=== PATIENT | female | born 1975 | race Caucasian/White ===

== ENCOUNTER → 2017-02-16 | Outpatient (CLI) | payer OTHER ==
--- NOTE | 2017-02-17 06:40 | PAP/PSG TECHNICIAN REPORT ---
[facility] Business Analytics Faculty Member Polysomnogram Report Study name: None Report date: 02/17/2017 Study date: 02/16/2017 Referring Physician: Karma Lo M.D. Name: CHAN TA Interpreting Physician: Ron Mendoza M.D. Date of : 1975 Business Analytics Faculty Member: Елена Narayan [facility]. Sex: Female Age: 42 StudyType: PSG Weight: 147.2 kgs Height: 42 years, Height 159 cm Neck Circum:42cm BMI: 58.23 Medications: Ativan 1mg, Dulera 200mcg-5mcg, Seroquel 50mg, Singulair 10mg, Ventolin HFA 90mcg/inh, Levothyroxine 88mcg, Sertraline 100mg, Spironolactone 50mg Patient History Study started on room air with ETCO2 monitoring in room #7. 41 yr old female here tonight for a possible split psg. She complains of SO and SM insomnia. She has EDS and loud snoring. Her sister has JOVITA and uses cpap. ESS=11/24. Neck circ=42cm. Parameters Monitored NPSG: E1-M2, E2-M1, Fp1-M2, Fp2-M1, F3-M2, F4-M2, F4-M1, C3-M2, C4-M2, C4-M1, O1-M2, O2-M2, O2-M1, T3-M2, T4-M1, P3-M2, P4-M1, CHIN1, CHIN2, HR, EKG, Legs, PFLOW, SNOR, FLOW, CFLOW, Tidal Volume, THOR, ABDO, SpO2, PLTH, CPRESS, ETCO2 Wave, ETCO2, pH Sleep Architecture Sleep Stages Time at Lights Off 10:36:55 PM STAGES Time (min.) TST (%) Time at Lights On 5:38:25 AM Wake 81.5 -- Total Recording Time (TRT) 421.50 min. N1 24.0 7 Total Sleep Period (TSP) 369.5 min. N2 219.0 64 Total Sleep Time (TST) 340.0min. N3 45.5 13 Awake Time 81.5 min. REM 51.5 15 Wake after Sleep Onset 30.0 min. Sleep Efficiency (SE) 81 % Sleep Onset Latency (SAVANNAH) 51.5 min. Number of Stage 1 Shifts None Awakenings 13 Stage Changes 95 Number of REM periods 8 REM 51.5 15 REM Latency 179.5 min. NREM 288.5 85 Body Position Analysis Supine Right Left Side Prone Vertical Total Sleep Time (min.) 138.8 41.1 209.9 250.93 0.0 0.0 Total Sleep Time (%) 26% 12% 62% 74 0% N/A% Total Sleep Time REM (min.) 0.0 0.0 51.5 None 0.0 0.0 Total Sleep Time NREM (min.) 89.1 41.1 158.4 None 0.0 0.0 Intermittent Wake (min.) 49.8 7.0 24.8 None 0.0 0.0 Total Sleep Period (%) 27% None None None None None Arousals Myoclonus (PLM) * Events Count Index Events Count Index Spontaneous 18 3 Events Awake (PLMW) 115 84.7 Respiratory 18 3.2 Events Asleep w/ Arousal (PLMA) 33 5.8 PLM 33 6 Events Asleep w/o Arousal (PLMS) 139 24.5 Snoring 12 2 Total Asleep 172 30.4 Total 80 14 Total 287 41 Respiratory Analysis * CA OA MA CH H RERA Total Count 0 1 0 0 28 3 29 Index 0.0 0.2 0.0 0 4.9 1 5.6 Mean Duration 0.0 11.3 0.0 0.00 33.5 15.8 31.2 Longest Duration 0.0 11.3 0.0 0.00 0.0 18.8 59.7 Respiratory Event Summary Total Supine ~Supine Right Left Prone REM NREM Apneas Count 1 0 1 0 1 N/A 0 1 Index 0.2 0 0 0.0 0.3 N/A 0 0 Hypopneas (4% Desat) Count 28 17 11 0 11 N/A 1 27 Index 4.9 11.5 3 0.0 3.1 N/A 1.2 5.6 Apneas & All Hypopneas Count 29 17 12 0 12 N/A 1 28 Index 5.1 11 3 0 3 N/A 1.2 5.8 Respiratory Events (First Helper+All Hyp+RERA) Count 29 19 13 0 13 N/A 1 28 Index 5.6 13 3 0.0 3.7 N/A 1.2 6.4 Respiratory Related Arousal Count 18 19 6 0 6 N/A 0 18 Index 3.2 8 1 0 2 N/A 0 4 Snoring Analysis Supine Right Left Prone REM NREM Total Snore duration 13.0 min Snores count 189 106 251 N/A 12 534 546 Snore mean duration 1.4 Sec Snores index 127 155 72 N/A 14.0 111.1 96.4 TST with snoring (%) 3.8% SpO2 Analysis Total REM NREM Awake <50% 0.0 min. 0.0 min. 0.0 min. 0.0 min. 51 - 60% 0.0 min. 0.0 min. 0.0 min. 0.0 min. 61 - 70% 0.0 min. 0.0 min. 0.0 min. 0.0 min. 71 - 80% 0.0 min. 0.0 min. 0.0 min. 0.0 min. 81 - 90% 165.2 min. 4.7 min. 132.3 min. 28.2 min. 91 - 100% 244.9 min. 46.5 min. 155.5 min. 43.0 min. Average 91 94 91 91 Minimum SpO2 34 88 84 34 Desaturation Event Index 7.3 4.7 7.1 11.0 # Desat. Events below 89% 19 1 15 3 Time(%) with Saturation below 89% 9.3 0.0 8.6 0.7 Time(min.) with Saturation below 89% 38.1 0.1 35.1 3.0 Heart Rate Analysis End Tidal CO2 Analysis Min (bpm) Max (bpm) Average (bpm) TSP (mins) % of TSP Awake 53 89 70 Above 55 mmHg 0.0 0.0 NREM 53 80 63 50-55 mmHg 0.0 0.0 REM 50 78 59 45-50 mmHg 0.0 0.0 Overall 50 80 62 40-45 mmHg 4.3 1.3 35-40 mmHg 268.8 79.1 30-35 mmHg 49.4 14.5 Average ETCO2 0.4 Supplemental O2 Values Minimum O2 level: None Value Start Time End Time Business Analytics Faculty Member Comments Ms. Ta slept in the right, left and supine positions. No cardiac arrhythmia noted. PLM's noted. No bruxism noted. Snoring was noted and scored as a 2 on a scale of 1 through 5. (0=no snoring, 5=snoring loud enough to be heard through a closed door or down the coronel way). She awoke to use the restroom 1 times during the night. She stated that she slept a little worse than usual. The final report will be interpreted and signed by a sleep physician. The completed physician report will then be placed in the patient medical record. Therapy (cm H2O) 0 TIB (min.) 421.5 TST (min.) 340.0 Sleep Onset (min.) 51.5 REM Onset From Sleep (min.) 179.5 Sleep Efficiency % 81 Wakefulness (%) 19 Wakefulness (min.) 81.5 NREM 1 (%) 7 NREM 1 (min.) 24.0 NREM 2 (%) 64 NREM 2 (min.) 219.0 NREM 3 (%) 13 NREM 3 (min.) 45.5 REM (%) 15 REM (min.) 51.5 # Arousals 80 Arousal Index 14 # Snore 546 Snore Index 96.4 AHI 5.1 AHI Supine 11 AHI Non-Supine 3 NREM AHI 5.8 REM AHI 1.2 RDI 5.6 # Obstructive Apnea 1 # Central Apnea 0 # Mixed Apnea 0 # Hypopneas 28 RERAs 3 Total Respiratory Events 33 Time Below SpO2 89% (min.) 35.2 Mean NREM SpO2 (%) 91 Mean REM SpO2 (%) 94 Mean Sleep SpO2 (%) 91 Min NREM SpO2 (%) 84 Min REM SpO2 (%) 88 Position Supine (min.) 138.8 Position Non-supine (min.) 250.9 LM Index Sleep 30.4 LM Index NREM 32.9 LM Index REM 16.3 Mean Heart Rate (bpm) 62 Min Heart Rate (bpm) 50
--- NOTE | 2017-02-19 12:56 | POLYSOMNOGRAPH REPORT ---
CLINICAL DATA: A 42-year-old female with a BMI of 58.[address] Karma Lo for history of sleep onset and sleep maintenance insomnia with loud snoring and excessive daytime sleepiness and apnea. Her [place] sleepiness score is 11/24. SLEEP ARCHITECTURE: Total sleep period was 369.5 minutes. Total sleep time was 340 minutes divided between 288.5 minutes of non-REM sleep and 51.5 minutes of REM sleep. Sleep onset latency was 51.5 minutes. REM latency was 179.5 minutes. Sleep efficiency was 81%. Wake after sleep onset was 30 minutes. Sleep consisted of stage N1 7%, N2 64%, N3 13%, and REM 15%. AROUSAL DATA: Eight arousals recorded for an index of 14 per hour. PERIODIC LIMB MOVEMENTS DATA: Mildly elevated limb movements during sleep were noted. There were 173 limb movements during sleep noted for an index of 30.4 per hour with arousal index of 5.8 per hour. RESPIRATORY DATA: Very mild borderline sleep apnea/hypopnea was noted. The AHI was 5.1. The RDI was 5.6. There was 1 obstructive apneic episode, 11.3 seconds in duration. There were 28 hypopneic episodes. The mean duration of hypopnea was 33.5 seconds. There were 3 RERAs. The longest duration of RERA was 18.8 seconds. OXIMETRY DATA: Nocturnal hypoxemia was seen. Oxygen brown was 84%. Mean saturation was 91%. ELECTROCARDIOGRAM: Heart ranged from 53-80 beats per minute. No arrhythmias were noted. SOFTWARE CONFIGURATION ANALYST'S COMMENTS: The patient slept in the right, left, and supine positions. PLMs were noted. Snoring was mild, rated 2 on a scale of 1 through 5. IMPRESSION: Mild sleep apnea/hypopnea with an apnea-hypopnea index of 5.1 and a respiratory disturbance index of 5.3 with mild nocturnal hypoxemia. RECOMMENDATIONS: The patient may benefit from weight loss, positional therapy, use of an oral appliance, or repeat sleep study with CPAP. Clinical correlation is needed. [facility]
== END | disposition home or self-care (01) ==
LOC: C.NEUR 20:00
PROVIDERS: ATTEND Family Medicine
DX: R53.83 Other fatigue (principal)